=== PATIENT | female | born 1990 | race Two or more races ===

== ENCOUNTER 2019-06-22 19:54 | Emergency (ER) | payer OTHER ==
[~2019-06-22] VITALS: Ht 157.5 cm; Wt 61.8 kg
[2019-06-23] MEDS ORDERED: ACETAMINOPHEN 500 MG TABLET PO ONE (00:30)
[2019-06-23] MEDS ORDERED: ONDANSETRON HCL 4 MG TABLET PO ONE (00:30)
[2019-06-23 00:50] VITALS: BP 123/70
== END 2019-06-23 00:50 | disposition home or self-care (01) ==
LOC: EMS 19:55
DX: O98.511 Other viral diseases complicating pregnancy, first trimester (principal); U07.1 COVID-19; J06.9 Acute upper respiratory infection, unspecified; Z3A.00 Weeks of gestation of pregnancy not specified
CPT/HCPCS: 84703; 87635; 99283; Q0162